=== PATIENT | female | born 1985 | race African-American/Black ===

== ENCOUNTER 2020-04-30 03:11 | Inpatient (IN) | payer OTHER ==
[~2020-04-30] VITALS: Ht 162.6 cm; Wt 68.2 kg
[2020-04-30] MEDS ORDERED: ASPI-989 PO (04:06)
[2020-04-30] MEDS ORDERED: FOLI-130 PO (04:06)
[2020-04-30] MEDS ORDERED: LOSA50TA37 PO (04:06)
[2020-04-30] MEDS ORDERED: MECLIZINE HCL 25 MG TABLET PO ONE (04:45)
[2020-04-30] MEDS ORDERED: IBUPROFEN 600 MG TABLET PO ONE (04:45)
[2020-04-30] MEDS ORDERED: ACETAMINOPHEN 500 MG TABLET PO ONE (04:45)
[2020-04-30 04:51] LABS: BASOPHILS % (AUTO) 0.3 % (0.0-2.0); EOSINOPHILS % (AUTO) 0.1 % (1.0-6.0); HEMATOCRIT 39.5 % (36-46); HEMOGLOBIN 13.4 g/dL (12.0-16.0); LYMPHOCYTES # (AUTO) 1.6 K/uL (1.0-4.8); LYMPHOCYTES % (AUTO) 25.9 % (22.0-44.0); MEAN CORPUSCULAR HEMOGLOBIN 27.9 pg (26.0-34.0); MEAN CORPUSCULAR VOLUME 82 fL (80-100); MONOCYTES # (AUTO) 0.3 K/uL (0.1-1.0); MONOCYTES % (AUTO) 4.7 % (2.0-9.0); NEUTROPHILS # (AUTO) 4.2 K/uL (1.8-7.7); PLATELET COUNT (AUTO) 273 K/uL (150-450); RED BLOOD CELL COUNT(AUTO) 4.82 MIL/uL (4.00-5.20); RED CELL DISTRIBUTION WIDTH 13.1 % (11.5-14.5)
[2020-04-30 04:59] LABS: ANION GAP 7 mmol/L (8-16); CALCIUM, TOTAL 9.3 mg/dL (8.8-10.5); CARBON DIOXIDE 27 mmol/L (22-29); CHLORIDE 101 mmol/L (98-107); GLOMERULAR FILTR. RATE CALC > 60 mL/min (>60); GLUCOSE,RANDOM 98 mg/dL (70-110); POTASSIUM 3.6 mmol/L (3.5-5.1); SODIUM SERUM 135 mmol/L (136-145); UREA NITROGEN, BLOOD 11 mg/dL (7-18)
[2020-04-30 05:09] LABS: COVID AG,FIA SOURCE NASOPHARYNGEAL
[2020-04-30 05:10] LABS: ALANINE AMINOTRANSFERASE 25 U/L (12-78); ALBUMIN 4.2 g/dL (3.4-5.0); ALKALINE PHOSPHATASE 98 U/L (46-116); ASPARTATE AMINOTRANSFERASE 20 U/L (15-37); BILIRUBIN,TOTAL 0.3 mg/dL (0.1-1.0); HCG,QUANTITATIVE < 1 mIU/mL (0-6); TOTAL PROTEIN, SERUM 8.3 g/dL (6.4-8.2)
[2020-04-30] MEDS ORDERED: ACETAMINOPHEN 325 MG TABLET PO PRN ×2 (05:15→07:45)
[2020-04-30] MEDS ORDERED: 0.9% SODIUM CHLORIDE 10 ML SYRINGE IVP PRN (05:15)
[2020-04-30] MEDS ORDERED: ONDANSETRON HCL 4 MG/2 ML VIAL IVP PRN (05:15)
[2020-04-30] MEDS ORDERED: MAGNESIUM HYDROXIDE SUSPENSION 30 ML UDCUP PO PRN (07:45)
[2020-04-30 09:58] LABS: AMPHET/METH SCREEN,URINE NEGATIVE (NEGATIVE); APPEARANCE,URINE CLEAR (CLEAR); BARBITURATE SCREEN, URINE NEGATIVE (NEGATIVE); BENZODIAZEPINES SCREEN,URINE NEGATIVE (NEGATIVE); BILIRUBIN,URINE NEGATIVE (NEGATIVE); CANNABINOID SCREEN,URINE NEGATIVE (NEGATIVE); COCAINE SCREEN,URINE NEGATIVE (NEGATIVE); GLUCOSE, URINE (UA) NEGATIVE (NEGATIVE); KETONES,URINE NEGATIVE (NEGATIVE); LEUKOCYTE ESTERASE ,URINE NEGATIVE (NEGATIVE); METHADONE SCREEN, URINE NEGATIVE (NEGATIVE); NITRATE,URINE NEGATIVE (NEGATIVE); OCCULT BLOOD,URINE SMALL (NEGATIVE); OPIATE SCREEN,URINE NEGATIVE (NEGATIVE); PROTEIN,URINE NEGATIVE (NEGATIVE); UROBILINOGEN,URINE 0.2 mg/dL (<=1.0)
[2020-04-30 10:00] LABS: PHENCYCLIDINE SCREEN,URINE NEGATIVE (NEGATIVE)
[2020-04-30] MEDS: FAMOTIDINE 20 MG TABLET PO SCH (10:00)
[2020-04-30] MEDS: AmLODIPine BESYLATE 10 MG TABLET PO SCH (10:00)
[2020-04-30 10:27] LABS: BACTERIA,URINE None Seen /HPF (None Seen); WBC,URINE None Seen /HPF (0-5)
[2020-04-30 10:28] LABS: SQUAMOUS EPITHELIAL CELL,UR Rare /LPF (None Seen)
[2020-04-30 11:22] VITALS: BP 154/104
[2020-04-30 15:50] VITALS: BP 137/77
[2020-04-30 20:23] VITALS: BP 113/77
[2020-05-01 05:27] VITALS: BP 149/79
[2020-05-01] MEDS: AmLODIPine BESYLATE 10 MG TABLET PO SCH (08:24)
[2020-05-01] MEDS: FAMOTIDINE 20 MG TABLET PO SCH (08:24)
[2020-05-01 08:26] VITALS: BP 147/117
[2020-05-01 11:21] VITALS: BP 144/93
[2020-05-01] MEDS: LISINOPRIL 20 MG TABLET PO SCH (11:57)
[2020-05-01 20:28] VITALS: BP 150/92
[2020-05-02 04:42] VITALS: BP 132/78
[2020-05-02 07:22] VITALS: BP 155/85
[2020-05-02] MEDS: LISINOPRIL 20 MG TABLET PO SCH (08:00)
[2020-05-02] MEDS: AmLODIPine BESYLATE 10 MG TABLET PO SCH (08:00)
[2020-05-02] MEDS: FAMOTIDINE 20 MG TABLET PO SCH (08:00)
[2020-05-02] MEDS ORDERED: LISI-894 PO (11:02)
[2020-05-02] MEDS ORDERED: AMLO-258 PO (11:02)
[2020-05-02] MEDS ORDERED: MOM30 PO (11:04)
[2020-05-02] MEDS ORDERED: ACET-2865 PO (11:04)
== END 2020-05-02 12:05 | DRG 103 ==
LOC: EMS 03:16 → 6S 05:03
PROVIDERS: ADMIT Internal Medicine; ATTEND Internal Medicine
DX: G44.209 Tension-type headache, unspecified, not intractable (principal); I10 Essential (primary) hypertension; Z20.822 Contact with and (suspected) exposure to COVID-19
CPT/HCPCS: 84443; 87426; 99285; G0480